=== PATIENT | male | born 2000 | race Hispanic/Latino ===

== ENCOUNTER 2025-01-27 18:15 | Emergency (ER) | payer OTHER ==
[~2025-01-27] VITALS: Ht 170.2 cm; Wt 79.4 kg
[2025-01-27] MEDS ORDERED: KETO10TA2 PO (18:34)
[2025-01-27] MEDS ORDERED: METH-662 PO (18:34)
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
[2025-01-27 19:48] VITALS: BP 122/70; PULSE 82; RESP 17; TEMP 98; O2SAT 98
== END 2025-01-27 19:54 | disposition home or self-care (01) ==
LOC: EDH 18:15
DX: S00.83XA Contusion of other part of head, initial encounter (principal); Y04.2XXA Assault by strike against or bumped into by another person, initial encounter; Y93.89 Activity, other specified; Y92.128 Other place in nursing home as the place of occurrence of the external cause; Y99.0 Civilian activity done for income or pay
CPT/HCPCS: 99283